=== PATIENT | male | born 1985 | race Caucasian/White ===

== ENCOUNTER 2018-12-18 20:37 | Emergency (ER) | payer OTHER ==
[~2018-12-18] VITALS: Ht 188 cm; Wt 158.8 kg
[2018-12-18] MEDS ORDERED: ROBAXIN 750 MG750 M1 PO (21:55)
[2018-12-18] MEDS ORDERED: NAPROSYN500 MG PO (21:55)
[2018-12-18 22:00] VITALS: BP 158/92
== END 2018-12-18 22:00 | disposition home or self-care (01) ==
LOC: ER 20:37
DX: S39.012A Strain of muscle, fascia and tendon of lower back, initial encounter (principal); E11.9 Type 2 diabetes mellitus without complications; F17.210 Nicotine dependence, cigarettes, uncomplicated; W00.0XXA Fall on same level due to ice and snow, initial encounter; Y93.89 Activity, other specified; Y92.89 Other specified places as the place of occurrence of the external cause; Y99.8 Other external cause status